=== PATIENT | female | born 1940 | race Caucasian/White ===

== ENCOUNTER 2025-01-18 13:50 | Outpatient (CLI) | payer BC ==
[2025-01-18] MEDS ORDERED: METH2.5T55 PO (14:44)
[2025-01-18] MEDS ORDERED: VERA240T92 PO (14:44)
[2025-01-18] MEDS ORDERED: AREDS 2 (14:44)
[2025-01-18] MEDS ORDERED: MELA5TAB12 PO (14:44)
[2025-01-18] MEDS ORDERED: BIOT1CAP3 PO (14:44)
[2025-01-18] MEDS ORDERED: NAPR-56 PO (14:44)
[2025-01-18] MEDS ORDERED: FOLI0.4T6 PO (14:44)
[2025-01-18] MEDS ORDERED: LEVO100T9 PO (14:44)
[2025-01-18] MEDS ORDERED: CALC-855 PO (14:44)
--- NOTE | 2025-01-18 14:57 | ELECTROCARDIOGRAPH REPORT ---
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 Og Contreras Measurements Intervals [facility] Rate: 68 P: 0 FL: 254 QRS: 56 QRSD: 110 T: 68 QT: 470 QTc: 500 Interpretive Statements Sinus rhythm Prolonged FL interval Borderline repolarization abnormality Borderline prolonged QT interval Electronically Signed On 01-22-2025 7:05:[address] Og Contreras Please click the below link to view image of tracing.
[2025-01-18 14:58] LABS: MEAN PLATELET VOLUME 10.5 FL (7.4-10.4); PRE OP HEMATOCRIT 41.9 % (35.0-45.0); PRE OP HEMOGLOBIN 14.0 g/dL (12.0-16.0); PRE OP PLATELET COUNT 153 X10'3 (140-440); PRE OP WHITE BLOOD COUNT 4.9 10'3 (4.8-10.8); RED CELL DISTRIBUTION WIDTH 13.8 % (11.5-14.5)
[2025-01-18 15:03] LABS: CREATININE 0.64 MG/DL (0.40-0.90); PRE OP ALT 16 U/L (30-65); PRE OP ANION GAP 5 (8-16); PRE OP AST 24 U/L (10-37); PRE OP BILIRUB, TOTAL 0.7 MG/DL (0.0-1.0); PRE OP GLUCOSE 104 MG/DL (70-104); PRE OP POTASSIUM 4.1 MMOL/L (3.4-5.1); PRE OP SODIUM 140 MMOL/L (135-145); TOTAL CARBON DIOXIDE 30.3 MMOL/L (24-32); eGFR 89 ML/MIN
== END 2025-01-18 23:58 | disposition home or self-care (01) ==
LOC: PRE-OP 13:50 → EDSTATUS 01-25 11:15
PROVIDERS: ATTEND Surgery
DX: Z01.818 Encounter for other preprocedural examination (principal); K40.90 Unilateral inguinal hernia, without obstruction or gangrene, not specified as recurrent
CPT/HCPCS: 36415; 80053; 85025; 93005

== ENCOUNTER 2025-01-19 11:43 | Outpatient (CLI) | payer BC ==
[~2025-01-19 11:43] MED LIST: AREDS 2; BIOT1CAP3 PO; CALC-855 PO; FOLI0.4T6 PO; LEVO100T9 PO; MELA5TAB12 PO; METH2.5T55 PO; NAPR-56 PO; VERA240T92 PO
--- NOTE | 2025-01-19 13:26 | VASCULAR REPORT ---
Bilateral lower extremity venous duplex Clinical History: edema Comparison: None Findings: Duplex Doppler evaluation of the deep venous systems of both lower extremities from the common femoral veins to the popliteal veins including color Doppler and spectral/pulsed waveform analysis was performed. Vein Imaging (Right) CFV (R): Compressible, Spontaneous, Respirophasic, Augmentation Reflux: ms SFJ (R): Compressible, Spontaneous, Respirophasic, Augmentation Reflux: ms FEM (R): Compressible, Spontaneous, Respirophasic, Augmentation Reflux: ms POP (R): Compressible, Spontaneous, Respirophasic, Augmentation Reflux: ms DFV (R): Compressible, Spontaneous, Respirophasic, Augmentation Reflux: ms PTV (R): Compressible, Spontaneous, Respirophasic, Augmentation GSV (R): Compressible, Spontaneous, Respirophasic, Augmentation Reflux: ms Reflux: ms Peroneals (R): Compressible, Spontaneous, Respirophasic, Augmentation Reflux: ms Vein Imaging (Left) CFV (L): Compressible, Spontaneous, Respirophasic, Augmentation Reflux: ms SFJ (L): Compressible, Spontaneous, Respirophasic, Augmentation Reflux: ms FEM (L): Compressible, Spontaneous, Respirophasic, Augmentation POP (L): Compressible, Spontaneous, Respirophasic, Augmentation Reflux: ms Reflux: ms DFV (L): Compressible, Spontaneous, Respirophasic, Augmentation Reflux: ms PTV (L): Compressible, Spontaneous, Respirophasic, Augmentation Reflux: ms GSV (L): Thrombus Reflux: ms Peroneals (L): Compressible, Spontaneous, Respirophasic, Augmentation Reflux: ms CONCLUSION No sonographic evidence of deep vein thrombosis to bilateral lower extremity Normal compressible veins with respirophasic flow and good augmentation throughout bilateral leg. Left GSV branch appears noncompressible in thigh(area of pain, red streak and palpable cord) with no flow detected suggestive of SVT
== END 2025-01-19 23:59 | disposition home or self-care (01) ==
LOC: VAS 11:43
PROVIDERS: ATTEND Specialist
DX: Z01.818 Encounter for other preprocedural examination (principal); I83.893 Varicose veins of bilateral lower extremities with other complications; M79.652 Pain in left thigh; M79.651 Pain in right thigh; Z86.718 Personal history of other venous thrombosis and embolism; K40.90 Unilateral inguinal hernia, without obstruction or gangrene, not specified as recurrent
CPT/HCPCS: 93970